=== PATIENT | female | born 1985 | race Asian ===

== ENCOUNTER 2020-01-13 12:07 | Emergency (ER) | payer OTHER, MEDICAID ==
[~2020-01-13] VITALS: Ht 157.5 cm; Wt 70.4 kg
--- NOTE | 2020-01-13 12:31 | NUR ---
PT STATES HAS BEEN HAVING VISUAL HALLUCINATIONS AND HAS BEEN SEEKING TELEPSCYH WITH INCREASE IN HER CELEXA AND PUT ON TRAZADONE. STATES SHE HAS HX OF ANXIETY AND PTSD. SHE HAS BEEN LAID OFF AND HER NIECE THIS YEAR OF CANCER. WHEN SHE REACHED OUT TO TELEPSYCH TODAY SHE WAS REFERRED TO URGENT CARE WHO REFERRED HER TO ER. PT STATES TRAZAONE HAS BEEN HELPING HER SLEEP. PT HAS BEEN FEELING BODY ACHES AND CP SOB THE LAST FEW DAYS.
--- NOTE | 2020-01-13 13:00 | NUR ---
REPORT RECEIVED FROM MILE IVERSON. PT UP TO BATHROOM WITH STEADY GAIT. URINE SENT TO LAB. PT CALM AND COOPERATIVE.
[2020-01-13 13:11] LABS: CULTURE INDICATED? YES; MICROSCOPIC INDICATED
[2020-01-13 13:15] LABS: BASOPHILS # (AUTO) 0.09 x10^3/uL (0-0.1); BASOPHILS % (AUTO) 1 % (0-1); EOSINOPHILS # (AUTO) 0.17 x10^3/uL (0-0.4); EOSINOPHILS % (AUTO) 1 % (1-7); LYMPHOCYTES # (AUTO) 3.26 x10^3/uL (1-3.4); LYMPHOCYTES % (AUTO) 23 % (22-44); MD NO; MEAN CORPUSCULAR HEMOGLOBIN 31.4 pg (27.0-34.8); MEAN CORPUSCULAR HGB CONC 33.2 g/dL (32.4-35.8); MEAN CORPUSCULAR VOLUME 94.6 fL (80-100); MEAN PLATELET VOLUME 8.3 fL (7.4-10.4); MONOCYTES # (AUTO) 0.66 x10^3/uL (0.2-0.8); MONOCYTES % (AUTO) 5 % (2-9); NEUTROPHILS # (AUTO) 10.32 x10^3/uL (1.8-6.8); NEUTROPHILS % (AUTO) 71 % (42-75); PLATELET COUNT 373 x10^3/uL (130-400); RED BLOOD COUNT 4.62 x10^6/uL (3.82-5.3); RED CELL DISTRIBUTION WIDTH 14.3 % (9.6-15.2)
[2020-01-13 13:21] LABS: ALANINE AMINOTRANSFERASE 14 U/L (12-78); ALBUMIN 3.8 g/dL (3.4-5.0); ANION GAP 4 mmol/L (5-15); CALCIUM 8.7 mg/dL (8.5-10.1); CHLORIDE 108 mmol/L (98-107); CREATININE 0.84 mg/dL (0.55-1.02); SALICYLATE LEVEL 7.1 mg/dL (2.8-20.0)
[2020-01-13 13:31] LABS: ALKALINE PHOSPHATASE 91 U/L (45-117); BILIRUBIN,TOTAL 0.3 mg/dL (0.2-1.0); TOTAL PROTEIN 7.9 g/dL (6.4-8.2)
[2020-01-13] MEDS ORDERED: CEFDINIR 300 MG CAPSULE PO ONE (14:00)
[2020-01-13] MEDS ORDERED: CEFDINIR 300 MG CAPSULE ONE (14:00)
[2020-01-13 14:17] LABS: AMPHETAMINE SCREEN, URINE Negative (Negative); BARBITURATE SCREEN, URINE Negative (Negative); BENZODIAZEPINE SCREEN, URINE Negative (Negative); CANNABINOID SCREEN, URINE Positive (Negative); COCAINE SCREEN, URINE Negative (Negative); METHADONE SCREEN, URINE Negative (Negative); OPIATE SCREEN, URINE Negative (Negative)
--- NOTE | 2020-01-13 14:53 | NUR ---
PT REPORT FROM MILE COURTNEY. PT CARE TO BE ASSUMED.
[2020-01-13] MEDS ORDERED: GABA300C10 PO (14:57)
[2020-01-13] MEDS ORDERED: TRAZ-96 PO (14:57)
[2020-01-13] MEDS ORDERED: CITA40TA5 PO (14:58)
[2020-01-13 15:07] VITALS: BP 98/65
--- NOTE | 2020-01-13 15:08 | NUR ---
Pt angry about still being in ED and wants to be discharged. Will notify provider.
--- NOTE | 2020-01-13 15:13 | NUR ---
CONTACTED TANNER CARDENAS. PLAN: TELEPSYCH EVAL, ANTIBIOTIC FOR UTI. PT WILL BE NOTIFED.
--- NOTE | 2020-01-13 15:17 | NUR ---
PT INFORMED OF POC. PT UNWILLING TO WAIT.
--- NOTE | 2020-01-13 16:22 | NUR ---
PT LEFT PRIOR TO GETTING HER PRESCRIPTION FOR ANTIBIOTICS. ATTEMPTED TO CALL PT. NO ANSWER. MESSAGE LEFT FOR PT TO CALL ER
--- NOTE | 2020-01-13 16:34 | NUR ---
PT RETURNED CALL. RX FAXED TO [facility] ON [address] PER PT REQUEST
== END 2020-01-13 15:23 | disposition left against medical advice (07) ==
LOC: ED 12:43
DX: N30.00 Acute cystitis without hematuria (principal); F32.9 Major depressive disorder, single episode, unspecified; T43.215A Adverse effect of selective serotonin and norepinephrine reuptake inhibitors, initial encounter; R44.1 Visual hallucinations; Y92.89 Other specified places as the place of occurrence of the external cause
CPT/HCPCS: 36415; 80053; 80307; 81001; 84443; 84703; 85025; 87077; 87086; 87186; 93005; 99284

== ENCOUNTER 2021-03-15 21:01 | Emergency (ER) | payer OTHER, MEDICAID ==
[~2021-03-15] VITALS: Ht 170.2 cm; Wt 79.5 kg
[~2021-03-15 21:01] MED LIST: CITA40TA5 PO; GABA300C10 PO; TRAZ-96 PO
[2021-03-15 21:11] VITALS: BP 123/79
--- NOTE | 2021-03-16 01:47 | NUR ---
FILTER TANK TENDER: NIL X 1 WHEN CALLED FOR ROOM
--- NOTE | 2021-03-16 02:08 | NUR ---
NIL X 2 WHEN CALLED FOR ROOM.
--- NOTE | 2021-03-16 02:31 | NUR ---
SALVAGE ENGINEER: NIL X 3 WHEN CALLED FOR ROOM
== END 2021-03-16 02:48 | disposition left against medical advice (07) ==
LOC: ED 23:30
DX: M79.671 Pain in right foot (principal)
CPT/HCPCS: 99283

== ENCOUNTER 2021-04-02 16:59 | Emergency (ER) | payer OTHER, MEDICAID ==
[~2021-04-02] VITALS: Ht 157.5 cm; Wt 79.5 kg
--- NOTE | 2021-04-02 18:26 | NUR ---
PT HAS CO LLQ PAIN X4 DAYS W N/V. DENIES PAINFUL URINATION.
[2021-04-02 18:30] LABS: BASOPHILS % (AUTO) 1 % (0-1); EOSINOPHILS % (AUTO) 2 % (1-7); LYMPHOCYTES % (AUTO) 28 % (22-44); MEAN CORPUSCULAR HEMOGLOBIN 30.9 pg (27.0-34.8); MEAN CORPUSCULAR HGB CONC 34.2 g/dL (32.4-35.8); MEAN PLATELET VOLUME 7.9 fL (7.4-10.4); MONOCYTES % (AUTO) 7 % (2-9); NEUTROPHILS % (AUTO) 62 % (42-75); PLATELET COUNT 384 x10^3/uL (130-400); RED BLOOD COUNT 4.66 x10^6/uL (3.82-5.3); RED CELL DISTRIBUTION WIDTH 13.2 % (9.6-15.2)
[2021-04-02] MEDS ORDERED: SODIUM CHLORIDE FLUSH 10ML SYR IVF ONE ×2 (18:30→19:30)
[2021-04-02 18:41] LABS: ALANINE AMINOTRANSFERASE 27 U/L (12-78); ALBUMIN 3.6 g/dL (3.4-5.0); ANION GAP 2 mmol/L (5-15); CALCIUM 8.8 mg/dL (8.5-10.1); CHLORIDE 104 mmol/L (98-107)
[2021-04-02 18:46] LABS: ALKALINE PHOSPHATASE 89 U/L (45-117); BILIRUBIN,TOTAL 0.5 mg/dL (0.2-1.0); CREATININE 0.75 mg/dL (0.55-1.02); TOTAL PROTEIN 7.9 g/dL (6.4-8.2)
--- NOTE | 2021-04-02 19:08 | NUR ---
PT BACK FROM IMAGING
[2021-04-02 19:12] VITALS: BP 109/74
[2021-04-02 19:30] LABS: MICROSCOPIC INDICATED
--- NOTE | 2021-04-02 19:30 | NUR ---
PIV PLACED FOR CT. PT HAS CO IN LLQ
[2021-04-02] MEDS ORDERED: OMNIPAQUE 350 MG/ML, 100ML BOTTLE ONE (20:14)
--- NOTE | 2021-04-02 21:10 | NUR ---
REPORT RECIEVED FROM ANGELINA, RN
== END 2021-04-02 21:48 | disposition home or self-care (01) ==
LOC: ED 21:42
DX: R10.32 Left lower quadrant pain (principal); R11.2 Nausea with vomiting, unspecified; Z90.89 Acquired absence of other organs
CPT/HCPCS: 36415; 74177; 76830; 80053; 81001; 84702; 85025; 87077; 87086; 99285; Q9967; 87186